=== PATIENT | female | born 1990 | race Caucasian/White ===

== ENCOUNTER → 2019-05-29 14:09 | Outpatient (CLI) | payer MEDICAID, SELFPAY ==
[2019-05-28 11:56] VITALS: BMI 30.7
== END ==
PROVIDERS: Family Provider Family Medicine; PCP Family Medicine; Referring Provider Physician Assistant Medical; Visit Provider Physician Assistant Medical
DX: J02.9 Acute pharyngitis, unspecified (principal)
CPT/HCPCS: 87081

== ENCOUNTER → 2021-06-25 09:28 | Outpatient (CLI) | payer OTHER, MEDICAID, SELFPAY ==
--- NOTE | 2021-06-25 09:32 | VDLE_ITS ---
Reason For Study: Leg pain, Swelling, Varicose veins bilateral RIGHT LEFT GSV is normal. GSV is normal. CFV is compressible, spontaneous, phasic, CFV is compressible, spontaneous, phasic, competent and demonstrates normal competent, and demonstrates normal augmentation. augmentation. FV is compressible, spontaneous, phasic, FV is compressible, spontaneous, phasic, competent and demonstrates normal competent and demonstrates normal augmentation. augmentation. POP V is compressible, spontaneous, phasic, POP V is compressible, spontaneous, phasic, competent and demonstrates normal competent and demonstrates normal augmentation. augmentation. T/P Trunk is compressible. T/P Trunk is compressible. PTV is compressible. PTV is compressible. RT PerV is compressible. LT PerV is compressible. SFJ is competent and measures 0.63 x 0.83 cm. SFJ is INCOMPETENT and measures 0.76 x 1.07 GSV proximal thigh measures 0.33 x 0.33 cm. cm. GSV at knee measures 0.29 x 0.30 cm. GSV proximal thigh measures 0.28 x 0.31 cm. GSV is competent throughout. GSV at knee measures 0.26 x 0.27 cm. SSV proximal calf is competent and measures GSV is competent throughout. 0.27 x 0.31 cm. SSV proximal calf is competent and measures Procedure 0.35 x 0.34 cm. This is a venous duplex using B-mode, color ASV from junction is INCOMPETENT for greater flow and spectral Doppler. than 0.5 seconds and measures 0.41 x 0.48 cm. Exam performed in department. ASV from proximal posteroir calf is INCOMPETENT for greater than 0.5 seconds and measures 0.24 x 0.23 cm. ASV distal thigh is INCOMPETENT for greater than 0.5 seconds and measures 0.31 x 0.33 cm. VL/Venous Duplex US - [place] Extrem Interpretation Summary Bilateral lower extremities with no evidence of DVT or SVT visualized. No deep reflux noted. Left accessory saphenous with reflux noted from the junction down through the thigh measuring 4.8, 2.3, and then 3.3 mm. Ordering Physician: Rogelio Constantino Referring Physician: Davey Urbina Performed By: Mckenzie Moreira RVT
== END ==
PROVIDERS: PCP Family Medicine; Referring Provider Surgery Vascular Surgery; Visit Provider Surgery Vascular Surgery
DX: I83.893 Varicose veins of bilateral lower extremities with other complications (principal); M79.604 Pain in right leg; M79.605 Pain in left leg; M79.89 Other specified soft tissue disorders
CPT/HCPCS: 93970